=== PATIENT | male | born 1985 ===

== ENCOUNTER 2018-09-08 00:22 | Observation (INO) | payer MEDICAID, OTHER ==
--- NOTE | 2018-09-08 00:46 | C.PDOC ---
History Of Present Illness Patient presents with dizziness for a day and a half that began while at work. Patient states he feels the room spinning and reports some nausea. He took a motrin sickness otc tablet with no relief. Denies vomiting, weakness, or slurred speech. Time Seen by Provider: 09/08/18 00:45 Chief Complaint (Nursing): Dizziness/Lightheaded History Per: Patient History/Exam Limitations: no limitations Onset/Duration Of Symptoms: Days Current Symptoms Are (Timing): Still Present Seizure Or Post-ictal Symptoms: None Possible Causative Factor(s): Vertigo Fall Associated With With Symptoms: No Severity: Moderate Pain Scale Rating Of: 4 - Symptoms Of CVA Associated Symptoms: denies: Impaired Speech, Seizure Activity, New Vision Deficit(Left), New Vision Deficit(Right), Decreased Ability To Walk, New Confusion Past Medical History Reviewed: Historical Data, Nursing Documentation, Vital Signs Vital Signs: Last Vital Signs Temp 97.6 F 09/08/18 00:37 Pulse 62 09/08/18 00:37 Resp 22 09/08/18 00:37 BP 128/81 09/08/18 00:37 Pulse Ox 100 09/08/18 00:37 Family History: States: No Known Family Hx - Social History Hx Alcohol Use: No Hx Substance Use: No - Immunization History Hx Tetanus Toxoid Vaccination: No Hx Influenza Vaccination: No Hx Pneumococcal Vaccination: No Review Of Systems Constitutional: Negative for: Fever, Chills Eyes: Negative for: Vision Change Cardiovascular: Negative for: Chest Pain, Palpitations Respiratory: Negative for: Cough, Shortness of Breath Gastrointestinal: Positive for: Nausea. Negative for: Vomiting Neurological: Positive for: Dizziness. Negative for: Weakness, Numbness, Change in Speech Physical Exam - Physical Exam Appears: Non-toxic Skin: Warm, Dry Head: Normacephalic Eye(s): bilateral: Normal Inspection, PERRL, EOMI Oral Mucosa: Moist Neck: Trachea Midline, Supple Chest: Symmetrical, No Tenderness Cardiovascular: Rhythm Regular Respiratory: No Rales, No Rhonchi, No Wheezing Gastrointestinal/Abdominal: Soft, No Tenderness Neurological/Psych: Oriented x3, Other (No focal deficit. No nystagmus.) ED Course And Treatment - Laboratory Results Result Diagrams: 09/08/18 01:05 09/08/18 01:05 O2 Sat by Pulse Oximetry: 100 (room air) Pulse Ox Interpretation: Normal Progress Note: CT head, blood work, and urinalysis ordered. IV fluids, meclizine, toradol, and zofran administered. NIHSS Stroke Scale 2 - Date/Time Evaluation Performed Date Performed: 09/08/18 Time Performed: 00:45 When Was NIHSS Performed: Baseline - How Severe is the Stroke Level of Consciousness: 0=Alert LOC to Questions: 0=Both comments correct LOC to commands: 0=Obeys both correctly Best Gaze: 0=Normal Visual: 0=No visual loss Facial: 0=Normal Motor Arm - Left: 0=No drift Motor Arm - Right: 0=No drift Motor Leg - Left: 0=No drift Motor Leg - Right: 0=No drift Limb Ataxia: 0=Absent Sensory: 0=Normal Best Language: 0=No aphasia Dysarthia: 0=Normal articulation Extinction & Inattention (Neglect): 0=Normal, no object Score: 0 Disposition Counseled Patient/Family Regarding: Studies Performed, Diagnosis - Disposition Disposition Time: 00:46 Condition: FAIR Forms: [employer] (Croatian) - Clinical Impression Clinical Impression: Dizziness, Vertigo, Labyrinthitis - Scribe Statement The provider has reviewed the documentation as recorded by the Scribe Desean Peck All medical record entries made by the Scribe were at my direction and personally dictated by me. I have reviewed the chart and agree that the record accurately reflects my personal performance of the history, physical exam, medical decision making, and the department course for this patient. I have also personally directed, reviewed, and agree with the discharge instructions and disposition. Physician Patient Turnover Patient Signed Over To: Elias Beebe Handoff Comments: pending re-eval and disposition
[2018-09-08 01:09] LABS: BASO % 0.4 % (0.0-2.0); EOS # 0.1 K/uL (0.0-0.7); EOS % 0.9 % (0.0-4.0); HEMOGLOBIN 15.1 g/dL (12.0-18.0); LYMPH # 1.6 K/uL (1.0-4.3); LYMPH % 27.2 % (20.0-40.0); MEAN CELL VOLUME 94.6 fL (80.0-94.0); MEAN CORPUSCULAR HEMOGLOBIN 33.5 pg (27.0-31.0); MEAN CORPUSCULAR HGB CONC 35.4 g/dL (33.0-37.0); MEAN PLATELET VOLUME 9.2 fL (7.2-11.7); MONO # 0.4 K/uL (0.0-0.8); MONO % 6.4 % (0.0-10.0); NEUT # 3.7 K/uL (1.8-7.0); NEUT % 65.1 % (50.0-75.0); RBC 4.51 Mil/uL (4.40-5.90); WHITE BLOOD COUNT 5.7 K/uL (4.8-10.8)
[2018-09-08 01:22] LABS: ALB/GLOB RATIO 1.6 (1.0-2.1); ALBUMIN 4.4 g/dL (3.5-5.0); ALT/SGPT 44 U/L (21-72); AST/SGOT 36 U/L (17-59); BLOOD UREA NITROGEN 15 mg/dL (9-20); CALCIUM 9.3 mg/dl (8.6-10.4); GFR NON-AFRICAN AMERICAN > 60
[2018-09-08] MEDS ORDERED: Sodium Chloride 0.9% 1,000 ML IV ONE (02:42)
[2018-09-08] MEDS ORDERED: Dexamethasone 4 mg/1 ml IVP STA (04:50)
[2018-09-08] MEDS ORDERED: Dexamethasone 4 mg/1 ml ONE (04:55)
[2018-09-08 07:19] LABS: URINE BILIRUBIN NEGATIVE (NEGATIVE); URINE BLOOD 1+ (NEGATIVE); URINE CLARITY Clear (Clear); URINE COLOR Yellow (YELLOW); URINE GLUCOSE (UA) NORMAL (Normal); URINE LEUKOCYTE ESTERASE NEG Leu/uL (Negative); URINE PROTEIN NEGATIVE (NEGATIVE); URINE UROBILINOGEN NORMAL mg/dL (0.2-1.0)
--- NOTE | 2018-09-08 08:19 | CT ---
Date of service: 09/08/2018 PROCEDURE: CT HEAD WITHOUT CONTRAST. HISTORY: Headache, dizziness COMPARISON: None available TECHNIQUE: Axial computed tomography images were obtained through the head/brain without intravenous contrast. Radiation dose: Total exam DLP = 1307.74 mGy-cm. This CT exam was performed using one or more of the following dose reduction techniques: Automated exposure control, adjustment of the mA and/or kV according to patient size, and/or use of iterative reconstruction technique. FINDINGS: HEMORRHAGE: No intracranial hemorrhage. BRAIN: No mass effect or edema. No atrophy or chronic microvascular ischemic changes. VENTRICLES: Unremarkable. No hydrocephalus. CALVARIUM: Unremarkable. PARANASAL SINUSES: Unremarkable as visualized. No significant inflammatory changes. MASTOID AIR CELLS: Unremarkable as visualized. No inflammatory changes. OTHER FINDINGS: None. IMPRESSION: No acute intracranial abnormality. If symptoms persists, consider correlation with MRI. A preliminary report was generated at 1:30 a.m. on 09/08/[address] Garry Zafar from [facility].
--- NOTE | 2018-09-08 09:22 | CP.PCM.HP ---
<Bhargav Lux - Last Filed: 09/08/18 14:20> History of Present Illness - History of Present Illness History of Present Illness: PGY-1 History and Physical [address] Dr. Dover Patient is a 33 year old male with past medical history of polycystic kidney disease (diagnosed as a child but never followed up) presenting to the ED with acute onset dizziness and lightheadedness for the past 2 days with associated nausea and decreased appetite. Patient states symptoms began while he was at work and have progressively worsened. He describes his dizziness as the room spinning and double vision. His symptoms worsen with movement. He has had similar symptoms in the past which have resolved spontaneously within few minutes. He is unable to stand or walk because he cannot keep his balance. Associated symptoms include nasal and bilateral ear congestion, headache, shortness of breath, and numbness of left hand. He denies chest pain, palpitations, vision changes, facial droop, fever, vomiting, rash, muscle weakness, and syncope. He has tried over the counter anti-vertigo medication which has not helped. He recently returned from a trip to [place] 2 weeks ago. 12 pt ROS reviewed and otherwise negative. PMHx: PKD PSHx: L ankle surgery (19 yrs ago) Allergies: NKDA Home Meds: denies Family Hx: Mom--PKD Social Hx: Smokes 1 joint of marijuana 3-5 times per week. Drinks alcohol so cially, denies illicit drug use. Sexual Hx: Patient in a monogamous relationship with female for 17 years. Denies hx of STD. last STD test was 1 year ago which was negative. PMD: None Present on Admission - Present on Admission Any Indicators Present on Admission: No Review of Systems - Review of Systems All systems: reviewed and no additional remarkable complaints except Review of Systems: as per HPI Past Patient History - Past Social History Smoking Status: weed - NEUROLOGICAL Hx Syncope: Yes (2019) - RENAL Other/Comment: cyst kidney all his life - MUSCULOSKELETAL/RHEUMATOLOGICAL Hx Falls: Yes (vertigo) - PSYCHIATRIC Hx Substance Use: No - SURGICAL HISTORY Hx Surgeries: No - ANESTHESIA Hx Anesthesia: No Meds Allergies/Adverse Reactions: Allergies Allergy/AdvReac Type Severity Reaction Status Date / Time No Known Allergies Allergy Verified 09/08/18 00:42 Physical Exam - Constitutional Appears: Non-toxic - Head Exam Head Exam: ATRAUMATIC, NORMAL INSPECTION, NORMOCEPHALIC - Eye Exam Eye Exam: EOMI, Normal appearance, Nystagmus, PERRL. absent: Conjunctival injection, Scleral icterus Pupil Exam: NORMAL ACCOMODATION - ENT Exam ENT Exam: Mucous Membranes Dry, Normal Exam - Neck Exam Neck exam: Positive for: Full Rom, Normal Inspection. Negative for: Lymphadenopathy, Tenderness, Thyromegaly - Respiratory Exam Respiratory Exam: Clear to Auscultation Bilateral, NORMAL BREATHING PATTERN. absent: Accessory Muscle Use, Rales, Rhonchi, Wheezes, Respiratory Distress, Stridor - Cardiovascular Exam Cardiovascular Exam: REGULAR RHYTHM, +S1, +S2 - GI/Abdominal Exam GI & Abdominal Exam: Normal Bowel Sounds, Soft. absent: Distended, Firm, Guarding, Rebound, Rigid, Tenderness - Exam Additional comments: no penile lesion, no urethral discharge. no inguinal lymphadenopathy. no anal lesions or rashes. - Extremities Exam Extremities exam: Positive for: normal capillary refill, normal inspection, pedal pulses present. Negative for: calf tenderness, pedal edema - Neurological Exam Neurological exam: Alert, CN II-XII Intact, Oriented x3 Additional comments: Unable to tolerate Romberg testing Finger to nose intact Sensation intact B/L UE and LE Muscle strength 5/5 B/L Results - Vital Signs Recent Vital Signs: Last Vital Signs Temp 98.3 F 09/08/18 08:28 Pulse 84 09/08/18 08:28 Resp 18 09/08/18 08:28 BP 122/77 09/08/18 08:28 Pulse Ox 99 09/08/18 08:28 - Labs Result Diagrams: 09/08/18 01:05 09/08/18 01:05 Labs: Laboratory Results - last 24 hr 09/08/18 09/08/18 09/08/18 01:05 01:05 07:07 WBC 5.7 RBC 4.51 Hgb 15.1 Hct 42.6 MCV 94.6 H MCH 33.5 H MCHC 35.4 RDW 13.0 Plt Count 139 MPV 9.2 Neut % (Auto) 65.1 Lymph % (Auto) 27.2 [place] % (Auto) 6.4 Eos % (Auto) 0.9 Baso % (Auto) 0.4 Neut # (Auto) 3.7 Lymph # (Auto) 1.6 [place] # (Auto) 0.4 Eos # (Auto) 0.1 Baso # (Auto) 0.0 Sodium 137 Potassium 3.4 L Chloride 106 Carbon Dioxide 20 L Anion Gap 14 BUN 15 Creatinine 1.1 Est GFR ( Amer) > 60 Est GFR (Non-Af Amer) > 60 Random Glucose 135 H Calcium 9.3 Total Bilirubin 0.8 AST 36 ALT 44 Alkaline Phosphatase 48 Total Protein 7.0 Albumin 4.4 Globulin 2.7 Albumin/Globulin Ratio 1.6 Urine Color Yellow Urine Clarity Clear Urine pH 6.0 Ur Specific [place] 1.010 Urine Protein Negative Urine Glucose (UA) Normal Urine Ketones Negative Urine Blood 1+ H Urine Nitrate Negative Urine Bilirubin Negative Urine Urobilinogen Normal Ur Leukocyte Esterase Neg Urine WBC (Auto) 1 Urine RBC (Auto) 2 Alcohol, Quantitative < 10 Assessment & Plan - Assessment and Plan (Free Text) Assessment: 33 year old male with pmhx of PKD presents to the ED with complains of worsening dizziness and nausea. Physical exam positive for horizontal nystagmus and worsening symptoms with movement. Plan: Dizziness/lightheadedness, likely 2/2 vertigo -pt s/p meclizine, toradol, zofran x 1 in ED; continues to be symptomatic -nystagmus evident on PE -CT head: No acute intracranial pathology -f/u Carotid Doppler -f/u MRI Brain w/o contrast -RPR -FTA-ab -hepatitis panel -UDS -Vit B12, folate, Vit D -TSH/free T4 -Zofran 4mg IVP Q4PRN -NS 100cc/hr -Neurology (Dr. Doherty) consulted Hx of Polycystic Kidney Disease -BUN/Cr wnl -K 3.4, Kdur 40mEQ given; replete prn -recommend outpatient follow up Case discussed with Dr Stanislaw Lux DO, PGY-1 <Luther Dover - Last Filed: 09/08/18 19:31> Results - Vital Signs Recent Vital Signs: Last Vital Signs Temp 98.0 F 09/08/18 16:00 Pulse 95 H 09/08/18 16:00 Resp 18 09/08/18 16:00 BP 142/86 09/08/18 16:00 Pulse Ox 97 09/08/18 16:00 - Labs Result Diagrams: 09/08/18 01:05 09/08/18 01:05 Labs: Laboratory Results - last 24 hr 09/08/18 09/08/18 09/08/18 01:05 01:05 07:07 WBC 5.7 RBC 4.51 Hgb 15.1 Hct 42.6 MCV 94.6 H MCH 33.5 H MCHC 35.4 RDW 13.0 Plt Count 139 MPV 9.2 Neut % (Auto) 65.1 Lymph % (Auto) 27.2 [place] % (Auto) 6.4 Eos % (Auto) 0.9 Baso % (Auto) 0.4 Neut # (Auto) 3.7 Lymph # (Auto) 1.6 [place] # (Auto) 0.4 Eos # (Auto) 0.1 Baso # (Auto) 0.0 Sodium 137 Potassium 3.4 L Chloride 106 Carbon Dioxide 20 L Anion Gap 14 BUN 15 Creatinine 1.1 Est GFR ( Amer) > 60 Est GFR (Non-Af Amer) > 60 Random Glucose 135 H Calcium 9.3 Total Bilirubin 0.8 AST 36 ALT 44 Alkaline Phosphatase 48 Total Protein 7.0 Albumin 4.4 Globulin 2.7 Albumin/Globulin Ratio 1.6 Triglycerides Cholesterol LDL Cholesterol Direct HDL Cholesterol Vitamin B12 25-OH Vitamin D Total Folate Free T4 TSH 3rd Generation Urine Color Yellow Urine Clarity Clear Urine pH 6.0 Ur Specific [place] 1.010 Urine Protein Negative Urine Glucose (UA) Normal Urine Ketones Negative Urine Blood 1+ H Urine Nitrate Negative Urine Bilirubin Negative Urine Urobilinogen Normal Ur Leukocyte Esterase Neg Urine WBC (Auto) 1 Urine RBC (Auto) 2 Alcohol, Quantitative < 10 RPR Hepatitis A IgM Ab Hep Bs Antigen Hep B Core IgM Ab Hepatitis C Antibody HIV 1&2 Antibody Screen 09/08/18 09/08/18 09/08/18 16:28 16:28 16:28 WBC RBC Hgb Hct MCV MCH MCHC RDW Plt Count MPV Neut % (Auto) Lymph % (Auto) [place] % (Auto) Eos % (Auto) Baso % (Auto) Neut # (Auto) Lymph # (Auto) [place] # (Auto) Eos # (Auto) Baso # (Auto) Sodium Potassium Chloride Carbon Dioxide Anion Gap BUN Creatinine Est GFR ( Amer) Est GFR (Non-Af Amer) Random Glucose Calcium Total Bilirubin AST ALT Alkaline Phosphatase Total Protein Albumin Globulin Albumin/Globulin Ratio Triglycerides 273 H Cholesterol 220 H LDL Cholesterol Direct 99 HDL Cholesterol 53 Vitamin B12 691 25-OH Vitamin D Total 18.9 L Folate 11.1 Free T4 TSH 3rd Generation 0.77 Urine Color Urine Clarity Urine pH Ur Specific [place] Urine Protein Urine Glucose (UA) Urine Ketones Urine Blood Urine Nitrate Urine Bilirubin Urine Urobilinogen Ur Leukocyte Esterase Urine WBC (Auto) Urine RBC (Auto) Alcohol, Quantitative RPR Nonreactive Hepatitis A IgM Ab Hep Bs Antigen Hep B Core IgM Ab Hepatitis C Antibody HIV 1&2 Antibody Screen 09/08/18 09/08/18 09/08/18 16:28 16:28 16:28 WBC RBC Hgb Hct MCV MCH MCHC RDW Plt Count MPV Neut % (Auto) Lymph % (Auto) [place] % (Auto) Eos % (Auto) Baso % (Auto) Neut # (Auto) Lymph # (Auto) [place] # (Auto) Eos # (Auto) Baso # (Auto) Sodium Potassium Chloride Carbon Dioxide Anion Gap BUN Creatinine Est GFR ( Amer) Est GFR (Non-Af Amer) Random Glucose Calcium Total Bilirubin AST ALT Alkaline Phosphatase Total Protein Albumin Globulin Albumin/Globulin Ratio Triglycerides Cholesterol LDL Cholesterol Direct HDL Cholesterol Vitamin B12 25-OH Vitamin D Total Folate Free T4 0.92 TSH 3rd Generation Urine Color Urine Clarity Urine pH Ur Specific [place] Urine Protein Urine Glucose (UA) Urine Ketones Urine Blood Urine Nitrate Urine Bilirubin Urine Urobilinogen Ur Leukocyte Esterase Urine WBC (Auto) Urine RBC (Auto) Alcohol, Quantitative RPR Hepatitis A IgM Ab Negative Hep Bs Antigen Negative Hep B Core IgM Ab Negative Hepatitis C Antibody Negative HIV 1&2 Antibody Screen Negative Attending/Attestation - Attestation I have personally seen and examined this patient.: Yes I have fully participated in the care of the patient.: Yes I have reviewed all pertinent clinical information: Yes Notes (Text): 09/08/18 19:30 Patient was seen and examined at 3:00 PM Multiple attempts made to see patient earlier however each time patient was not in room being taken for either Carotid U/S or MRI Brain Care of this patient, Assessment and Plan, all orders were gone over in detail with resident Luther Dover D.O.
[2018-09-08] MEDS: Sodium Chloride 0.9% 1,000 ML IV SCH ×3 (11:02→21:47)
[2018-09-08] MEDS ORDERED: DiphenhydrAMINE 50 mg/ml Inj IVP STA (14:40)
--- NOTE | 2018-09-08 15:32 | MRI ---
Date of service: 09/08/2018 PROCEDURE: MRI BRAIN WITHOUT CONTRAST HISTORY: dizziness/nystagmus COMPARISON: Noncontrast head CT from 09/08/2018. TECHNIQUE: Multiplanar, multisequence MR images of the brain were obtained without intravenous contrast enhancement. FINDINGS: HEMORRHAGE: None DWI: No evidence of an acute or early subacute infarction. BRAIN PARENCHYMA: There are mild chronic microangiopathic changes. There is no mass, mass effect or abnormal extra-axial fluid collection. There is no territorial infarction. The midline sagittal structures are normal. VENTRICLES: There is mild age advanced global parenchymal volume loss and proportionate enlargement of the ventricles and cortical sulci. CRANIUM: There is normal bone marrow signal pattern. ORBITS: Grossly unremarkable. PARANASAL SINUSES/MASTOIDS: Predominantly clear. VASCULAR SYSTEM: There are normal signal voids in the larger intracranial arteries. OTHER FINDINGS: None. IMPRESSION: No acute intracranial abnormality.
--- NOTE | 2018-09-08 15:38 | CP.PCM.CON ---
History of Present Illness - History of Present Illness History of Present Illness: Neuro Consult Note Patient is a 33 year old male with past medical history of polycystic kidney disease (diagnosed as a child but never followed up) who presented to the ED with dizziness and lightheadedness for the past 2 days with associated nausea and decreased appetite. Patient said he has had some dizziness in the past, but never this severe. He said the symptoms come and go, but became severe before he came to the ED. Patient explains the dizziness as the room spinning. Patient denies any ear pain or sick contacts. Currently patient has some headache and nausea. Patient denies any chest pain, palpitations, shortness of breath, abdominal pain, diarrhea, or constipation. Review of Systems - Constitutional Constitutional: absent: Chills, Fever - EENT Eyes: Change in Vision Ears: Dizziness. absent: Ear Pain - Cardiovascular Cardiovascular: Chest Pain. absent: Dyspnea - Respiratory Respiratory: absent: Dyspnea - Gastrointestinal Gastrointestinal: Nausea, Vomiting - Musculoskeletal Musculoskeletal: absent: Numbness, Tingling - Neurological Neurological: Dizziness, Headaches Past Patient History - Past Social History Smoking Status: weed - NEUROLOGICAL Hx Syncope: Yes (2019) - RENAL Other/Comment: cyst kidney all his life - MUSCULOSKELETAL/RHEUMATOLOGICAL Hx Falls: Yes (vertigo) - GASTROINTESTINAL Hx Nausea: Yes (due to feeling dizzy) - PSYCHIATRIC Hx Substance Use: No - SURGICAL HISTORY Hx Surgeries: No - ANESTHESIA Hx Anesthesia: No Meds Allergies/Adverse Reactions: Allergies Allergy/AdvReac Type Severity Reaction Status Date / Time No Known Allergies Allergy Verified 09/08/18 00:42 - Medications Medications: Current Medications Acetaminophen (Tylenol 325mg Tab) 975 mg PO Q6 PRN PRN Reason: Headache Last Admin: 09/08/18 10:57 Dose: 975 mg Sodium Chloride (Sodium Chloride 0.9%) 1,000 mls @ 100 mls/hr IV .Q10H NORBERTO Last Admin: 09/08/18 11:02 Dose: 100 mls/hr Ondansetron HCl (Zofran Inj) 4 mg IVP Q4 PRN PRN Reason: Nausea/Vomiting Last Admin: 09/08/18 10:56 Dose: 4 mg Physical Exam - Constitutional Appears: Non-toxic, No Acute Distress - Head Exam Head Exam: ATRAUMATIC, NORMAL INSPECTION, NORMOCEPHALIC - Eye Exam Eye Exam: EOMI, Nystagmus (upward ) - ENT Exam ENT Exam: Mucous Membranes Moist - Respiratory Exam Respiratory Exam: Clear to Auscultation Bilateral, NORMAL BREATHING PATTERN - Cardiovascular Exam Cardiovascular Exam: REGULAR RHYTHM, RRR, +S1, +S2 - GI/Abdominal Exam GI & Abdominal Exam: Normal Bowel Sounds, Soft - Extremities Exam Extremities exam: Positive for: normal inspection. Negative for: pedal edema, tenderness - Neurological Exam Neurological exam: Alert, Oriented x3 - Psychiatric Exam Psychiatric exam: Normal Affect, Normal Mood - Skin Skin Exam: Intact, Normal Color, Warm Results - Vital Signs Recent Vital Signs: Last Vital Signs Temp 97.7 F 09/08/18 09:22 Pulse 76 09/08/18 09:22 Resp 20 09/08/18 09:22 BP 129/85 09/08/18 09:22 Pulse Ox 99 09/08/18 09:22 - Labs Result Diagrams: 09/08/18 01:05 09/08/18 01:05 Labs: Laboratory Results - last 24 hr 09/08/18 09/08/18 09/08/18 01:05 01:05 07:07 WBC 5.7 RBC 4.51 Hgb 15.1 Hct 42.6 MCV 94.6 H MCH 33.5 H MCHC 35.4 RDW 13.0 Plt Count 139 MPV 9.2 Neut % (Auto) 65.1 Lymph % (Auto) 27.2 [place] % (Auto) 6.4 Eos % (Auto) 0.9 Baso % (Auto) 0.4 Neut # (Auto) 3.7 Lymph # (Auto) 1.6 [place] # (Auto) 0.4 Eos # (Auto) 0.1 Baso # (Auto) 0.0 Sodium 137 Potassium 3.4 L Chloride 106 Carbon Dioxide 20 L Anion Gap 14 BUN 15 Creatinine 1.1 Est GFR ( Amer) > 60 Est GFR (Non-Af Amer) > 60 Random Glucose 135 H Calcium 9.3 Total Bilirubin 0.8 AST 36 ALT 44 Alkaline Phosphatase 48 Total Protein 7.0 Albumin 4.4 Globulin 2.7 Albumin/Globulin Ratio 1.6 Urine Color Yellow Urine Clarity Clear Urine pH 6.0 Ur Specific [place] 1.010 Urine Protein Negative Urine Glucose (UA) Normal Urine Ketones Negative Urine Blood 1+ H Urine Nitrate Negative Urine Bilirubin Negative Urine Urobilinogen Normal Ur Leukocyte Esterase Neg Urine WBC (Auto) 1 Urine RBC (Auto) 2 Alcohol, Quantitative < 10 Assessment & Plan - Assessment and Plan (Free Text) Assessment: Dizziness likely 2/2 vertigo -nystagmus evident on PE -CT head (09/08/18): No acute intracranial abnormality -Brain MRI without (09/08/18): No acute intracranial abnormality -f/u Carotid Doppler -f/u RPR, FTA-ab, hepatitis panel, UDS -f/u Vit B12, folate, Vit D, TSH/free T4 -Zofran 4mg IVP Q4PRN -NS 100cc/hr -Notify neuro team of any acute changes in pt's condition. Discussed with Dr. Chas Paredes, PGY2
[2018-09-08 17:28] LABS: HEPATITIS B SURFACE AG Negative (NEGATIVE)
[2018-09-08 17:34] LABS: HEPATITIS A IGM NEGATIVE (NEGATIVE); HEPATITIS B CORE AB NEGATIVE (NEGATIVE)
[2018-09-08 17:45] LABS: HEPATITIS C ANTIBODY NEGATIVE (NEGATIVE)
[2018-09-08 18:07] LABS: FOLATE 11.1 ng/mL
[2018-09-08 22:31] LABS: BARBITURATES, UR NEGATIVE (NEGATIVE); BENZODIAZEPINES, UR NEGATIVE (NEGATIVE); OPIATES, UR NEGATIVE (NEGATIVE); PHENCYCLIDINE, UR NEGATIVE (NEGATIVE)
[2018-09-09] MEDS ORDERED: Potassium Chloride 20 mEq/15 ml LIQ UD PO ONE (08:30)
[2018-09-09 08:33] VITALS: BP 141/98; PULSE 75; RESP 20; TEMP 97.6; O2SAT 99
[2018-09-09] MEDS: Sodium Chloride 0.9% 1,000 ML IV SCH (08:52)
--- NOTE | 2018-09-09 10:00 | VASCLAB ---
Date of service: 09/08/2018 PROCEDURE: Carotid Duplex Exam. HISTORY: Dizziness, nystagmus. COMPARISON: None available. TECHNIQUE: Grayscale and duplex Doppler evaluation of the cervical carotid and vertebral arteries were performed. The common carotid, carotid bifurcations and cervical Internal Carotid Artery (ICA) and proximal External Carotid Artery (ECA) were evaluated. The vertebral arteries were evaluated for gross patency and flow direction. Report prepared by MIRELA Cueva FINDINGS: RIGHT CAROTID ARTERIES: 1. Common Carotid Artery: No significant focal plaque formation of the right common carotid artery. Maximum Peak Systolic velocity: 111 cm/sec: End-diastolic velocity 16 cm/sec. 2. Carotid Bifurcation: plaque formation. Maximum Peak Systolic velocity: 50 cm/sec: End-diastolic velocity 16 cm/sec. 3. Internal Carotid Artery: Plaque description: 3.1. Proximal Segment: Peak systolic velocity 92 cm/sec: End-diastolic velocity 43 cm/sec - % stenosis 0-15% 3.2. Middle Segment: Peak systolic velocity 71 cm/sec: End-diastolic velocity 32 cm/sec - % stenosis 0-15% 3.3. Distal Segment: Peak systolic velocity 102 cm/sec: End-diastolic velocity 47 cm/sec - % stenosis 0-15% 4. External Carotid Artery: No significant focal plaque formation. Peak systolic velocity 84 cm/sec 5. ICA/CCA Ratio: 1.1 LEFT CAROTID ARTERIES: 1. Common Carotid Artery: No significant focal plaque formation of the left common carotid artery. Maximum Peak Systolic velocity: 137 cm/sec: End-diastolic velocity 19 cm/sec. 2. Carotid Bifurcation: plaque formation. Maximum Peak Systolic velocity: 76 cm/sec: End-diastolic velocity 15 cm/sec. 3. Internal Carotid Artery: Plaque description: 3.1. Proximal Segment: Peak systolic velocity 97 cm/sec: End-diastolic velocity 46 cm/sec - % stenosis 0-15% 3.2. Middle Segment: Peak systolic velocity 109 cm/sec: End-diastolic velocity 49 cm/sec - % stenosis 0-15% 3.3. Distal Segment: Peak systolic velocity 112 cm/sec: End-diastolic velocity 37 cm/sec - % stenosis 0-15% 4. External Carotid Artery: No significant focal plaque formation. Peak systolic velocity 69 cm/sec 5. ICA/CCA Ratio: 1.5 VERTEBRAL ARTERIES: 1. Right Vertebral Artery: The right vertebral artery flow direction is antegrade. 2. Left Vertebral Artery: The left vertebral artery flow direction is antegrade. OTHER FINDINGS: None. IMPRESSION: RIGHT: Duplex scan does not suggest hemodynamically significant stenosis of the right extracranial carotid arteries. LEFT: Duplex scan does not suggest hemodynamically significant stenosis of the left extracranial carotid arteries.
--- NOTE | 2018-09-09 10:42 | CP.PCM.DIS ---
Provider - Provider Date of Admission: 09/08/18 07:43 Attending physician: Luther Dover MD Consults: 09/08/18 10:09 Neurology Consult Routine Comment: Consulting Provider: Nunu Doherty Consulting Physician: Nunu Doherty Reason for Consult: severe dizziness, hx vertigo, nystagmus present Time Spent in preparation of Discharge (in minutes): 45 Hospital Course - Lab Results Lab Results: Most Recent Lab Values WBC 5.7 K/uL (4.8-10.8) 09/08/18 01:05 RBC 4.51 Mil/uL (4.40-5.90) 09/08/18 01:05 Hgb 15.1 g/dL (12.0-18.0) 09/08/18 01:05 Hct 42.6 % (35.0-51.0) 09/08/18 01:05 MCV 94.6 fL (80.0-94.0) H 09/08/18 01:05 MCH 33.5 pg (27.0-31.0) H 09/08/18 01:05 MCHC 35.4 g/dL (33.0-37.0) 09/08/18 01:05 RDW 13.0 % (11.5-14.5) 09/08/18 01:05 Plt Count 139 K/uL (130-400) 09/08/18 01:05 MPV 9.2 fL (7.2-11.7) 09/08/18 01:05 Neut % (Auto) 65.1 % (50.0-75.0) 09/08/18 01:05 Lymph % (Auto) 27.2 % (20.0-40.0) 09/08/18 01:05 [place] % (Auto) 6.4 % (0.0-10.0) 09/08/18 01:05 Eos % (Auto) 0.9 % (0.0-4.0) 09/08/18 01:05 Baso % (Auto) 0.4 % (0.0-2.0) 09/08/18 01:05 Neut # (Auto) 3.7 K/uL (1.8-7.0) 09/08/18 01:05 Lymph # (Auto) 1.6 K/uL (1.0-4.3) 09/08/18 01:05 [place] # (Auto) 0.4 K/uL (0.0-0.8) 09/08/18 01:05 Eos # (Auto) 0.1 K/uL (0.0-0.7) 09/08/18 01:05 Baso # (Auto) 0.0 K/uL (0.0-0.2) 09/08/18 01:05 Sodium 137 mmol/L (132-148) 09/08/18 01:05 Potassium 3.4 mmol/L (3.6-5.2) L 09/08/18 01:05 Chloride 106 mmol/L (98-107) 09/08/18 01:05 Carbon Dioxide 20 mmol/L (22-30) L 09/08/18 01:05 Anion Gap 14 (10-20) 09/08/18 01:05 BUN 15 mg/dL (9-20) 09/08/18 01:05 Creatinine 1.1 mg/dL (0.8-1.5) 09/08/18 01:05 Est GFR ( Amer) > 60 09/08/18 01:05 Est GFR (Non-Af Amer) > 60 09/08/18 01:05 Random Glucose 135 mg/dL (75-110) H 09/08/18 01:05 Calcium 9.3 mg/dl (8.6-10.4) 09/08/18 01:05 Total Bilirubin 0.8 mg/dL (0.2-1.3) 09/08/18 01:05 AST 36 U/L (17-59) 09/08/18 01:05 ALT 44 U/L (21-72) 09/08/18 01:05 Alkaline Phosphatase 48 U/L (38-126) 09/08/18 01:05 Total Protein 7.0 g/dL (6.3-8.3) 09/08/18 01:05 Albumin 4.4 g/dL (3.5-5.0) 09/08/18 01:05 Globulin 2.7 gm/dL (2.2-3.9) 09/08/18 01:05 Albumin/Globulin Ratio 1.6 (1.0-2.1) 09/08/18 01:05 Triglycerides 273 mg/dL (0-149) H 09/08/18 16:28 Cholesterol 220 mg/dL (0-199) H 09/08/18 16:28 LDL Cholesterol Direct 99 mg/dL (0-129) 09/08/18 16:28 HDL Cholesterol 53 mg/dL (30-70) 09/08/18 16:28 Vitamin B12 691 pg/mL (239-931) 09/08/18 16:28 25-OH Vitamin D Total 18.9 NG/ML (30.0-100.0) L 09/08/18 16:28 Folate 11.1 ng/mL 09/08/18 16:28 Free T4 0.92 ng/dL (0.78-2.19) 09/08/18 16:28 TSH 3rd Generation 0.77 mIU/L (0.46-4.68) 09/08/18 16:28 Urine Color Yellow (YELLOW) 09/08/18 07:07 Urine Clarity Clear (Clear) 09/08/18 07:07 Urine pH 6.0 (5.0-8.0) 09/08/18 07:07 Ur Specific [place] 1.010 (1.003-1.030) 09/08/18 07:07 Urine Protein Negative mg/dL (NEGATIVE) 09/08/18 07:07 Urine Glucose (UA) Normal mg/dL (Normal) 09/08/18 07:07 Urine Ketones Negative mg/dL (NEGATIVE) 09/08/18 07:07 Urine Blood 1+ (NEGATIVE) H 09/08/18 07:07 Urine Nitrate Negative (NEGATIVE) 09/08/18 07:07 Urine Bilirubin Negative (NEGATIVE) 09/08/18 07:07 Urine Urobilinogen Normal mg/dL (0.2-1.0) 09/08/18 07:07 Ur Leukocyte Esterase Neg [place]/uL (Negative) 09/08/18 07:07 Urine WBC (Auto) 1 /hpf (0-5) 09/08/18 07:07 Urine RBC (Auto) 2 /hpf (0-3) 09/08/18 07:07 Urine Opiates Screen Negative (NEGATIVE) 09/08/18 22:01 Urine Methadone Screen Negative (NEGATIVE) 09/08/18 22:01 Ur Barbiturates Screen Negative (NEGATIVE) 09/08/18 22:01 Ur Phencyclidine Scrn Negative (NEGATIVE) 09/08/18 22:01 Ur Amphetamines Screen Negative (NEGATIVE) 09/08/18 22:01 U Benzodiazepines Scrn Negative (NEGATIVE) 09/08/18 22:01 U Oth Cocaine Metabols Negative (NEGATIVE) 09/08/18 22:01 U Cannabinoids Screen Positive (NEGATIVE) H 09/08/18 22:01 Alcohol, Quantitative < 10 mg/dl (0-10) 09/08/18 01:05 RPR Nonreactive (NONREACTIVE) 09/08/18 16:28 Hepatitis A IgM Ab Negative (NEGATIVE) 09/08/18 16:28 Hep Bs Antigen Negative (NEGATIVE) 09/08/18 16:28 Hep B Core IgM Ab Negative (NEGATIVE) 09/08/18 16:28 Hepatitis C Antibody Negative (NEGATIVE) 09/08/18 16:28 HIV 1&2 Antibody Screen Negative (NEGATIVE) 09/08/18 16:28 - Hospital Course Hospital Course: The following instructions were explained to patient and a copy will need to be provided to him upon discharge: 1). Schedule appointment with the [facility] by calling [phone] for an appointment in 7 to 10 days for follow up of your Vertigo, repeat blood work for Vitamin D level after you have completed treatment, and to establish them as your primary care physicians to help you coordinate your health care. It is located on Floor B of [address] 2). Follow up with with [facility] Office located on Floor B of [facility] as instructed by the Food Service Team Member/Coding Support Specialist during your admission. 3). Please do NOT move too quickly and do not change position of your head too quickly as this will worsen your Vertigo. Perform activities as tolerated. 4). Please remain well hydrated with water. 5). Please do NOT take any NSAIDS such as Ibuprofen, Naproxen, Aleve, Advil as this will worsen your Vertigo. 6). Please take the following medications as instructed and have the prescriptions filled at your pharmacy on your way home from the hospital: Scopolamine Patch 1mg, Apply patch behind the ear every 3 days, Dispense #10 Zofran 4 mg, 1 tablet by mouth every 8 hours ONLY NEEDED for nausea, Dispense #15 Vitamin D 50,000 Units, 1 tablet by mouth once a week every Wednesday until finished, Dispense #8 7). DO NOT FILL both prescriptions for Scopolamine and Zofran. Only the one that you can afford. 8). Please take care and be well. Luther Dover D.O. Discharge Exam - Head Exam Head Exam: ATRAUMATIC, NORMAL INSPECTION, NORMOCEPHALIC Discharge Plan - Discharge Medications Prescriptions: Ergocalciferol (Vitamin D2) [Vitamin D2] 50,000 unit PO QWK #8 capsule Ondansetron [Zofran] 4 mg PO Q8H #15 tab Scopolamine 1 mg/72 hr [Transderm-Scop] 1 each TD Q72H #10 patch - Follow Up Plan Condition: FAIR Disposition: HOME/ ROUTINE Instructions: Heart Healthy Diet, Vertigo (a Type of Dizziness) (DC), Scopolamine (Systemic), Ergocalciferol, Ondansetron Additional Instructions: The following instructions were explained to patient and a copy will need to be provided to him upon discharge: 1). Schedule appointment with the [facility] by calling [phone] for an appointment in 7 to 10 days for follow up of your Vertigo, repeat blood work for Vitamin D level after you have completed treatment, and to establish them as your primary care physicians to help you coordinate your health care. It is located on Floor [address] of [address] 2). Follow up with with [facility] Care Office located on Floor B of [facility] as instructed by the Food Service Team Member/Coding Support Specialist during your admission. 3). Please do NOT move too quickly and do not change position of your head too quickly as this will worsen your Vertigo. Perform activities as tolerated. 4). Please remain well hydrated with water. 5). Please do NOT take any NSAIDS such as Ibuprofen, Naproxen, Aleve, Advil as this will worsen your Vertigo. 6). Please take the following medications as instructed and have the presc riptions filled at your pharmacy on your way home from the hospital: Scopolamine Patch 1mg, Apply patch behind the ear every 3 days, Dispense #10 Zofran 4 mg, 1 tablet by mouth every 8 hours ONLY NEEDED for nausea, Dispense #15 Vitamin D 50,000 Units, 1 tablet by mouth once a week every Wednesday until finished, Dispense #8 7). DO NOT FILL both prescriptions for Scopolamine and Zofran. Only the one that you can afford. 8). Please take care and be well. Luther Dover D.O. Referrals: [facility] at [facility] [Outside]
--- NOTE | 2018-09-09 11:08 | CP.PCM.PN ---
Subjective - Date & Time of Evaluation Date of Evaluation: 09/09/18 Time of Evaluation: 10:40 - Subjective Subjective: Hospitalist Progress Note Patient was seen and examined at 10:40 AM 09/09/18 33 year old male who was admitted on 09/08/18 for Vertigo and N/V Currently upon Full ROS: Was able to get up and use the bathroom earlier although still with vertigo Able to eat dinner and breakfast this morning without N/V Moved his bowels normally this morning NO other complaints upon FULL ROS Exam: HEENT: NCA, EOMI, PERRLA, NO nystagmus noted, NO pharyngeal erythema/exudate, NO thyromegaly, TM B/L are intact/nonerythemtous/nonbulging/good lightreflex/no effusions, NO cervical/submandibular/supraclavicular lymphadenopathy, Nasal Turbinates are moist/nonerythematous/nonedematous Cardio: NS1 and NS2, NO M/R/G Resp: CTA B/L, NO R/R/W GI: BSx4, Soft, NT, ND, NHSM, NO guarding/rebound tenderness Ext: Capillary refill is 2 seconds, NO edeme, Pulses are strong and equal Assessments: 1). Vertigo Status: Acute 2). N/V secondary to Vertigo Status: Acute now resolved 3). Low Vitamin D Status: Acute CT Head showed NO acute intracranial abnormality MRI Head showed NO acute intracranial abnormality Carotid U/S did NOT show any significant stenosis TSH and Free T4 are normal Folate is normal Vitamin B12 is normal RPR is nonreactive Hepatitis Panel is negative HIV 1/2 is negative Vitamin D level is low at about 18 Patient's Vertigo likely secondary to recent URI and it has improved to the degree that he is able to ambulate and eat without N/V Explained to patient that this may take up to 2 to 3 weeks to resolve Till then he will move in stages, stay well hydrated with water, and perform activities as tolerated He is in between employment at the moment so he will be home Patient is stable for discharge and further managment as outpatient The following instructions were explained to patient and a copy will need to be provided to him upon discharge: 1). Schedule appointment with the [facility] by calling [phone] for an appointment in 7 to 10 days for follow up of your Vertigo, repeat blood work for Vitamin D level after you have completed treatment, and to establish them as your primary care physicians to help you coordinate your health care. It is located on Floor [address] of [address] 2). Follow up with with [facility] Care Office located on Floor B of [facility] as instructed by the Horticultural Manager/Instructor Looping during your admission. 3). Please do NOT move too quickly and do not change position of your head too quickly as this will worsen your Vertigo. Perform activities as tolerated. 4). Please remain well hydrated with water. 5). Please do NOT take any NSAIDS such as Ibuprofen, Naproxen, Aleve, Advil as this will worsen your Vertigo. 6). Please take the following medications as instructed and have the prescriptions filled at your pharmacy on your way home from the hospital: Scopolamine Patch 1mg, Apply patch behind the ear every 3 days, Dispense #10 Zofran 4 mg, 1 tablet by mouth every 8 hours ONLY NEEDED for nausea, Dispense #15 Vitamin D 50,000 Units, 1 tablet by mouth once a week every Wednesday until finished, Dispense #8 7). DO NOT FILL both prescriptions for Scopolamine and Zofran. Only the one that you can afford. 8). Please take care and be well. Luther Dover D.O. Objective - Vital Signs/Intake and Output Vital Signs (last 24 hours): Temp Pulse Resp BP Pulse Ox 97.6 F 75 20 141/98 H 99 09/09/18 07:00 09/09/18 07:00 09/09/18 07:00 09/09/18 07:00 09/09/18 07:00 Intake and Output: 09/09/18 09/09/18 06:59 18:59 Intake Total 1900 Output Total 200 Balance 1700 - Medications Medications: Current Medications Acetaminophen (Tylenol 325mg Tab) 975 mg PO Q6 PRN PRN Reason: Headache Last Admin: 09/08/18 10:57 Dose: 975 mg Sodium Chloride (Sodium Chloride 0.9%) 1,000 mls @ 100 mls/hr IV .Q10H NORBERTO Last Admin: 09/09/18 08:52 Dose: 100 mls/hr Ondansetron HCl (Zofran Inj) 4 mg IVP Q4 PRN PRN Reason: Nausea/Vomiting Last Admin: 09/08/18 22:33 Dose: 4 mg - Labs Labs: 09/08/18 01:05 09/08/18 01:05
== END 2018-09-09 14:10 | disposition home or self-care (01) ==
LOC: C.ER 00:22 → C.6T 07:43
PROVIDERS: ADMIT Family Medicine; ATTEND Family Medicine
DX: H83.09 Labyrinthitis, unspecified ear (principal); H55.00 Unspecified nystagmus; Q61.19 Other polycystic kidney, infantile type; Z79.899 Other long term (current) drug therapy
CPT/HCPCS: 36415; 70450; 70551; 80053; 80061; 80074; 80320; 80324; 80345; 80346; 80349; 80353; 80358; 80361; 81001; 82306; 82607; 82746; 83992; 84439; 84443; 85025; 86592; 86703; 86780; 93880; 96374; 99285; G0378; J1100; J1200; J1885; J2060; J2405; J2765; J7030